=== PATIENT | female | born 1975 | race Caucasian/White ===

== ENCOUNTER 2017-08-03 13:52 | Inpatient (IN) | payer SELFPAY ==
[~2017-08-03 13:52] MED LIST: ISOVUE-370 76%-LOCM 1 ML ONE
[2017-08-03 16:18] LABS: Bilirubin Negative (Negative); Blood, Urine Negative (Negative); Clarity CLOUDY (Clear); Glucose, Urine (Dipstick) Negative (Negative); Leukocyte Trace (Negative); Nitrite Negative (Negative); Protein, Urine (Dipstick) Negative (Neg-Trace); Specific Gravity, Urine 1.019 (1.002-1.036); pH, Urine 6.5 (5.0-9.0)
[2017-08-03 16:19] LABS: Bacteria/HPF 1+ HPF (None Seen); Hyaline Casts/LPF 0-3 HYALINE CAST LPF (0-3 Hyaline); Pathc Cast-AUWi Flag 0.54 (0-2.49); Pregnancy Test - Urine (BHCG) Negative (Negative); Pregu Control Background? CLEAR/WHITE (CLR/WHITE); Pregu Control Bar Appear? YES (CONTROL BAR); RBC/HPF 0-3 HPF (0-3); Specific Gravity 1.019 (1.002-1.036); WBC/HPF 0-3 HPF (0-3)
[2017-08-03] MEDS ORDERED: Ondansetron HCl/PF 4 MG/2 ML Vial ONE (17:46)
[2017-08-03] MEDS ORDERED: Morphine 4 MG/ML VIAL ONE ×2 (17:46→20:30)
[2017-08-03 17:57] LABS: #Basophils 0.1 thou/uL (0.0-0.2); #Eosinphils 0.5 thou/uL (0.0-0.7); #Lymphocytes 1.7 thou/uL (1.20-3.40); #Neutrophils 3.7 thou/uL (1.40-6.50); %Basophils 0.9 % (0.0-1.0); %Eosinophils 7.4 % (0.0-10.0); %Lymphocytes 24.3 % (21.0-51.0); %Monocytes 14.2 % (0.0-10.0); %Neutrophils 53.2 % (42.0-75.0); Hemoglobin 14.4 g/dL (12.0-16.0); Mean Corpuscular HGB CONC 33.1 g/dL (32.0-36.0); Mean Corpuscular Hemoglobin 32.2 pg (27.0-31.0); Mean Corpuscular Volume 97.1 fl (81.0-99.0); Mean Platelet Volume 8.3 fL (7.4-10.4); Platelet Count 235 thou/uL (130-400); RBC Distribution Width 10.9 % (11.5-14.5); Red Blood Cell (RBC) Count 4.47 mill/uL (4.20-5.40); White Blood Cell (WBC) Count 6.9 thou/uL (4.8-10.8)
[2017-08-03 18:13] LABS: ALT (SGPT) 40 U/L (8-55); AST (SGOT) 31 U/L (5-34); Albumin 3.8 g/dL (3.5-5.0); Alkaline Phosphatase 48 U/L (40-150); Anion Gap 15 mmol/L (10-20); BUN (Urea Nitrogen) 13 mg/dL (7.0-18.7); Bilirubin, Total 0.4 mg/dL (0.2-1.2); Calc. Creatinine Clearance 0 mL/min (70-130); Calcium 9.5 mg/dL (7.8-10.44); Carbon Dioxide 23 mmol/L (22-29); Chloride 104 mmol/L (98-107); Estimated GFR-MDRD Greater than 90; Glucose 103 mg/dL (70-105); Potassium 3.9 mmol/L (3.5-5.1); Protein, Total 6.8 g/dL (6.0-8.3); Sodium 138 mmol/L (136-145)
--- NOTE | 2017-08-03 19:33 | ULT ---
PELVIC ULTRASOUND WITH DOPPLER IMAGING AND SPECTRAL ANALYSIS 08/03/17 CLINICAL HISTORY: Pelvic pain. FINDINGS: The endometrium is prominent at 11 mm. A dominant cyst is seen at the right adnexa. This measures sandra roximately 1.4 cm. Minimal free pelvic fluid is nonspecific. As demonstrated, uterus measures approxi mately 8.7 cm in length. Doppler assessment reveals flow to each ovary. IMPRESSION: 1. Prominent endometrium at 11 mm. If the patient is premenopausal, this could be physiologic. O therwise, recommend gynecologic consultation for further assessment. Six week pelvic ultrasound may a lso be performed to confirm resolution. 2. Dominant cyst of right adnexa between 1 and 2 cm in size. POS: [facility]
--- NOTE | 2017-08-03 20:18 | CT ---
CT ABDOMEN AND PELVIS WITH IV CONTRAST: 08/03/17 HISTORY: Lower abdominal pain and distention. FINDINGS: The lung bases are clear. The liver, spleen, pancreas, adrenal glands and kidneys are normal. No calc ified gallstones are seen. The proximal small bowel loops are dilated with suggestion of a transition zone in the left lower quadrant (image 56, series 2). No free air or free fluid or lymphadenopathy seen in the abdomen. The uterus and ovaries are present. There is a corpus luteal cyst in the left ovary. There are mild degenerative changes in the spine. A normal appearing appendix is present. IMPRESSION: Findings are suspicious for small bowel obstruction. POS: [facility]
[2017-08-03] MEDS ORDERED: Lidocaine 2% Jelly 5 ML TUBE ONE (21:23)
[2017-08-03] MEDS ORDERED: Benzocaine 20% Spray 60 ML CAN ONE (21:23)
[2017-08-03] MEDS ORDERED: Oxymetazoline HCl 0.05% ( 15 ML ) ONE (21:23)
[2017-08-03] MEDS ORDERED: HYDROmorphone 0.5 MG/0.5 ML SYRINGE ONE (21:40)
--- NOTE | 2017-08-03 22:29 | RAD ---
PORTABLE CHEST ONE VIEW 08/03/17 at 10:19 p.m. HISTORY: NG tube placement. FINDINGS/IMPRESSION: The heart size is normal. The lungs are clear. A nasogastric tube is present which can be traced in t he right upper quadrant in the projection of the stomach with tip excluded from the film. POS: [facility]
[2017-08-04 00:13] VITALS: BMI 25.6
[2017-08-04] MEDS ORDERED: Ondansetron ODT 4 MG TAB SL PRN (00:14)
[2017-08-04] MEDS ORDERED: Ondansetron HCl/PF 4 MG/2 ML Vial IVP PRN ×2 (00:14→09:16)
[2017-08-04] MEDS ORDERED: Acetaminophen 325 MG TAB PO PRN (00:14)
[2017-08-04] MEDS: Lactated Ringer's 1,000 ML IV SCH ×4 (01:13→18:59)
[2017-08-04] MEDS: Morphine 4 MG/ML VIAL SLOW IVP PRN ×3 (01:21→09:04)
[2017-08-04 07:57] LABS: #Basophils 0.1 thou/uL (0.0-0.2); #Eosinphils 0.4 thou/uL (0.0-0.7); #Lymphocytes 1.3 thou/uL (1.20-3.40); #Monocytes 0.9 thou/uL (0.11-0.59); #Neutrophils 4.2 thou/uL (1.40-6.50); %Eosinophils 6.5 % (0.0-10.0); %Lymphocytes 19.1 % (21.0-51.0); %Monocytes 13.3 % (0.0-10.0); %Neutrophils 60.2 % (42.0-75.0); Hemoglobin 13.6 g/dL (12.0-16.0); Mean Corpuscular HGB CONC 34.5 g/dL (32.0-36.0); Mean Corpuscular Hemoglobin 34.1 pg (27.0-31.0); Mean Corpuscular Volume 98.7 fl (81.0-99.0); Mean Platelet Volume 8.6 fL (7.4-10.4); Platelet Count 195 thou/uL (130-400); RBC Distribution Width 11.1 % (11.5-14.5); White Blood Cell (WBC) Count 6.9 thou/uL (4.8-10.8)
[2017-08-04 08:16] LABS: Anion Gap 10 mmol/L (10-20); BUN (Urea Nitrogen) 11 mg/dL (7.0-18.7); Calc. Creatinine Clearance 94 mL/min (70-130); Calcium 9.1 mg/dL (7.8-10.44); Carbon Dioxide 28 mmol/L (22-29); Chloride 105 mmol/L (98-107); Estimated GFR-MDRD 75; Glucose 101 mg/dL (70-105); Potassium 4.3 mmol/L (3.5-5.1); Sodium 139 mmol/L (136-145)
[2017-08-04] MEDS ORDERED: Ondansetron ODT 8 MG TAB SL PRN (09:16)
[2017-08-04] MEDS ORDERED: Ketorolac Tromethamine 30 MG/ML VIAL IVP PRN (09:17)
[2017-08-04] MEDS ORDERED: Magnesium Citrate 300 ML BOT PO SCH ×2 (11:00→14:15)
--- NOTE | 2017-08-04 11:07 | RAD ---
ACUTE ABDOMINAL SERIES WITH FRONTAL RADIOGRAPH CHEST AND TWO VIEWS ABDOMEN: 08/04/2017 HISTORY: Re-evaluate small bowel obstruction. COMPARISON: CT abdomen and pelvis from 08/03/2017. FINDINGS: Frontal radiograph chest demonstrates no pneumothorax or pleural fluid and no focal consolidation or alveolar edema. There is a nasogastric tube overlying the midline superior mediastinum and tracheal air column. It t erminates at the level of the shirley. The exact location is uncertain. This could be within the eso phagus or the trachea. It should be advanced and reimaged. No focal consolidation or alveolar edema. Two views of the abdomen demonstrate no free intraperitoneal air. There is residual contrast media w ithin the urinary bladder. There is gas within the nondilated large and small bowel. Of note, there were prominent small bowel loops on prior CT, which were fluid-filled, and thus may be difficult to visualize on this exam. IMPRESSION: Nasogastric tube overlies the superior mediastinum and should be advanced and reimaged. No free intr aperitoneal air or significant gaseous distention of small bowel. Please see above discussion. POS: [facility]
[2017-08-04] MEDS: Acetaminophen 1,000 MG in Premix Bag 1 BAG IVPB SCH ×3 (11:10→23:45)
--- NOTE | 2017-08-04 11:17 | RAD ---
ABDOMEN ONE VIEW: HISTORY: Nasogastric tube placement. FINDINGS: Nasogastric tube descends to the stomach with the proximal port overlying the fundus. The visualized bowel gas pattern is nonspecific. Metallic bar overlies the umbilicus. IMPRESSION: Nasogastric tube is in good radiographic position. POS: [facility]
[2017-08-04] MEDS ORDERED: Morphine 4 MG/ML VIAL SLOW IVP PRN ×2 (14:05→14:06)
[2017-08-04] MEDS ORDERED: Fleet Enema 133 ML BOT PR SCH (14:15)
[2017-08-04] MEDS ORDERED: Chloraseptic Spray 180 ml Bottle PO PRN (17:17)
--- NOTE | 2017-08-04 19:44 | HP ---
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 She thought this was an ovarian cyst. She saw her optic fibre drawer several ye ars ago who recommended she have a hysterectomy for pressure incontinence and left ovarian cyst. The optic fibre drawer since left town and she has not seen another optic fibre drawer since. The patient presented to the emergency room yesterday, not having had a bowel movement since Wednesday (today is Wed). It was so busy that she left, but her pain was so severe that she returned. In the emergenc y room, she was evaluated and noted to have a white blood cell count of 6, hemoglobin 14. Comprehens cheo metabolic profile unremarkable. She underwent pelvis ultrasound that showed a small 1-2 cm cyst in right ovary and thickened endometrium, otherwise no remarkable findings. CAT scan of abdomen and pelvis obtained yesterday evening 7:00 p.m. revealing proximal small bowel loops dilated with suggest ion of transition zone on the left lower quadrant. The patient was admitted. NG tube placed. I had requested an NG tube be placed at 65 cm. Apparently, by the time I reviewed her abdominal x-rays morning, the NG tube is at 36 cm and in the distal esophagus. This has since been advanced and re peat abdominal x-rays reveal that it was placed in proper position. CAT scan revealed significant co nstipation. This was not read out by the Radiology. She has significant stool in her right colon, t ransverse colon, and sigmoid colon. She is having pain in her lower abdomen. She reports normal bow el movements previously. The patient has common law marriage, although . She has 2 grown jake evans. Her mother is with her. ALLERGIES: AZITHROMYCIN, PENICILLIN. TOBACCO: None. ALCOHOL: Socially. She had 4 beers two days and nights ago. HOME MEDICATIONS: Levothyroxine. PAST MEDICAL HISTORY: Hypothyroidism, stress urinary incontinence, chronic. PAST SURGICAL HISTORY: Laparoscopy at 14 years of age for an anteverted uterus, otherwise noncontrib utory. PHYSICAL EXAMINATION: VITAL SIGNS: 5 feet 4, 129 pounds, 25 BMI, temperature 97.6, pulse 71, blood pressure 106/66. HEAD, EYES, EARS, NOSE AND THROAT: Unremarkable. LUNGS: Clear to auscultation. CARDIAC: Regular rate and rhythm without murmur or gallop. ABDOMEN: Soft. Mild protuberance in her lower abdomen. It is not tympanitic. She has mild guardin g, but no peritoneal signs. Upper abdomen is soft. EXTREMITIES: Unremarkable. ASSESSMENT AND PLAN: Abdominal pain. Radiological findings suggest a bowel obstruction with a possi ble transition zone, but was not mentioned on her CAT scan is that she has significant constipation. I have given her magnesium citrate per NG tube this morning without results. She is passing some fl atus. I am repeating the magnesium citrate through her NG tube and giving her an enema. We will rep eat abdominal x-rays in the morning and obtain a small bowel follow through in the morning. We will make further recommendations pending these studies. I have encouraged to be ambulatory. I have enco uraged her to avoid narcotics and try to treat her discomfort with nonnarcotic analgesics.
[2017-08-04] MEDS ORDERED: Enoxaparin Sodium 40 MG/0.4 ML SYRINGE SC SCH (21:00)
[2017-08-04] MEDS ORDERED: Morphine 4 MG/ML Carpuject SLOW IVP PRN (21:28)
[2017-08-04] MEDS: Morphine 4 MG/ML Carpuject SLOW IVP PRN (21:43)
[2017-08-05] MEDS: Morphine 4 MG/ML Carpuject SLOW IVP PRN (03:48)
[2017-08-05] MEDS: Lactated Ringer's 1,000 ML IV SCH ×2 (03:57→10:52)
[2017-08-05] MEDS: Acetaminophen 1,000 MG in Premix Bag 1 BAG IVPB SCH ×2 (05:30→14:59)
--- NOTE | 2017-08-05 07:35 | RAD ---
TWO VIEWS ABDOMEN: HISTORY: Lower abdominal pain. FINDINGS: Supine and upright views of the abdomen are obtained. Radiopaque contrast is seen in the bladder and urinary collecting systems. There is a moderate degree of stool in the colon. No evidence of obstruction or ileus seen. No dila jacqueline loops of bowel seen. No evidence of free intraperitoneal air is seen. IMPRESSION: Unremarkable 2 views abdomen. POS: [facility]
[2017-08-05] MEDS ORDERED: Pantoprazole 40 MG VIAL IVP SCH (09:00)
--- NOTE | 2017-08-05 10:28 | RAD ---
ACUTE ABDOMINAL SERIES: Date: 08-05-17 Comparison: 08-04-17 History: Re-evaluate small bowel obstruction. FINDINGS: There is a nasogastric tube present. On the upright radiograph of the abdomen the nasogastric tube ex tends into the left upper quadrant with the sideport in the expected location of the gastric body and /or fundus. No free intraperitoneal air is noted. There is no dilated gas filled small bowel seen. Th ere is no pneumothorax, pleural fluid, or focal consolidation. IMPRESSION: No evidence for small bowel obstruction or free intraperitoneal air. No radiographic evidence of acut e cardiopulmonary disease. POS: [facility]
[2017-08-05] MEDS ORDERED: MD-Gastroview 120 ML BOT ONE (12:13)
--- NOTE | 2017-08-05 13:29 | RAD ---
GASTROGRAFIN SMALL BOWEL THROUGH: Date: 08-05-17 Provided Clinical History: Small bowel obstruction. FINDINGS: Installer Technician radiograph was performed as part of an acute abdominal series preceding the exam. Contrast admi nistered through the patient's enteric catheter. There is oral contrast material noted to traverse th e small bowel and inter the colon at the 45 minute elvis. The small bowel demonstrates a normal imagin g appearance. IMPRESSION: No evidence for small bowel obstruction. POS: [facility]
--- NOTE | 2017-08-05 14:44 | PRG ---
DATE OF SERVICE: 08/05/2017 Ms. Flaherty is doing well today. Mag citrate 2 doses given per NG tube last night, and she had karely l movements last night. This morning, small bowel follow through was normal. Abdominal x-rays nonsp ecific. She is tolerating her diet and having bowel movements and will plan discharge home today. A bdomen is soft, nontender, and nondistended.
[2017-08-05 15:49] VITALS: BP 109/65; TEMP 98
--- NOTE | 2017-08-06 00:03 | DIS ---
DATE OF ADMISSION: 08/03/2017 DATE OF DISCHARGE: 08/05/2017 DISCHARGE DIAGNOSES: 1. Partial bowel obstruction. 2. Constipation, severe. 3. Abdominal pain. HISTORY: A 41-year-old female patient presented in the emergency room with a history of abdominal di stention, nausea, and vomiting. She underwent abdominal and pelvic CAT scan and pelvic ultrasound. She had a 2 cm ovarian cyst, left. She has another bowel obstruction, but what was not read out on C AT scan was severe constipation. NG tube was placed and she did put a significant output overnight. By the time I saw her that morning, magnesium citrate was given 2 doses per NG tube and a small karely l follow through carried out the next day after the magnesium citrate. She had 3 to 4 bowel movement s, small bowel follow through was normal. NG tube removed. She was discharged home at this time, ad vised to take MiraLax and fiber daily and she will return to see me as needed. Diet and activity as tolerated.
== END 2017-08-05 16:31 | disposition home or self-care (01) | DRG 390 ==
LOC: ERS 13:52 → SURG B 20:40
PROVIDERS: ADMIT Specialist; ATTEND Specialist
DX: K56.609 Unspecified intestinal obstruction, unspecified as to partial versus complete obstruction (principal); E03.9 Hypothyroidism, unspecified; K59.00 Constipation, unspecified; N83.202 Unspecified ovarian cyst, left side; R32 Unspecified urinary incontinence
CPT/HCPCS: 36415; 71045; 74018; 74019; 74022; 74177; 74250; 76856; 80048; 80053; 81003; 81015; 81025; 83605; 85025; 96361; 96374; 96375; 96376; C9113; J0131; J1170; J1650; J1885; J2270; J2405

== ENCOUNTER 2018-06-29 09:21 | Emergency (ER) | payer SELFPAY ==
[2018-06-29] MEDS ORDERED: Dexamethasone 10 MG/ML VIAL ONE (10:12)
[2018-06-29] MEDS ORDERED: Clindamycin/D5W 900 mg/50 ml Premix Bag ONE (10:12)
[2018-06-29] MEDS ORDERED: Morphine 4 MG/ML VIAL ONE (10:12)
[2018-06-29] MEDS ORDERED: Ondansetron PF 4 MG/2 ML Vial ONE (10:12)
[2018-06-29] MEDS ORDERED: ISOVUE-370 76%-LOCM 1 ML ONE (10:40)
[2018-06-29] MEDS ORDERED: Ketorolac Tromethamine 30 MG/ML VIAL ONE (11:05)
--- NOTE | 2018-06-29 12:08 | CT ---
CT NECK SOFT TISSUES WITH CONTRAST: DATE: 06-29-18 HISTORY: 42-year-old female with pharyngitis and dysphagia. FINDINGS: There is moderately severe soft tissue edema involving multiple spaces, displacing structures, involv ing left submandibular, left sublingual, larynx (mostly left side), and left hypopharnyx (complete ef facement of left pyriform sinus). There is also some involvement of the visceral space bilaterally, m ild involvement of left parapharyngeal space, and left pharmacy resource tech space. The left submandibular gland has normal, symmetric degree of enhancement as the right. It is displaced to the left by the edema. There is no retropharyngeal abscess. No osseous cortical defect is identified in the mandible around roots of teeth on the lingual side. On the contralateral right side, there is a moderate sized osseous lucency completely surrounding the roots of one of the right molar teeth, with moderate sized lateral osseous defects at the buccal michelle e. Bilateral palatine tonsils, adenoids and lingual tonsils are mildly to moderately enlarged. There are multiple mildly enlarged reactive lymph nodes in the left side of the neck. Trachea is patent and cl ear. No consolidation at lung apices. IMPRESSION: 1. Evidence for cellulitis, with extensive moderately severe edema involving multiple spaces of the n damion, mostly on the left side. 2. No obvious dental source of the infection is identified in the left mandible. 3. There is moderately large periapical lucency around the root of one of the contralateral right mol ar teeth, associated with buccal side large osseous defect. 4. The above findings of edema have the appearance of Vinayak's angina, but without an obvious left si ded dental source. POS: [facility]
[2018-06-29 12:09] LABS: #Eosinphils 0.2 thou/uL (0.0-0.7); #Lymphocytes 0.6 thou/uL (1.20-3.40); #Monocytes 0.9 thou/uL (0.11-0.59); #Neutrophils 9.2 thou/uL (1.40-6.50); %Basophils 0.1 % (0.0-1.0); %Eosinophils 2.2 % (0.0-10.0); %Lymphocytes 5.5 % (21.0-51.0); %Monocytes 8.6 % (0.0-10.0); %Neutrophils 83.7 % (42.0-75.0); Hemoglobin 13.9 g/dL (12.0-16.0); Mean Corpuscular HGB CONC 33.4 g/dL (32.0-36.0); Mean Corpuscular Volume 95.7 fL (78.0-98.0); Mean Platelet Volume 8.8 fL (7.4-10.4); Platelet Count 209 thou/uL (130-400); RBC Distribution Width 11.4 % (11.5-14.5); Red Blood Cell (RBC) Count 4.33 mill/uL (4.20-5.40)
[2018-06-29 12:26] LABS: BHCG - Serum Negative (NEGATIVE); Pregs Control Background? CLEAR/WHITE (CLR/WHITE); Pregs Control Bar Appear? YES (CONTROL BAR)
[2018-06-29 12:35] LABS: ALT (SGPT) 23 U/L (8-55); AST (SGOT) 17 U/L (5-34); Albumin 3.5 g/dL (3.5-5.0); Alkaline Phosphatase 47 U/L (40-150); Anion Gap 9 mmol/L (10-20); BUN (Urea Nitrogen) 4 mg/dL (7.0-18.7); Bilirubin, Total 0.5 mg/dL (0.2-1.2); Calc. Creatinine Clearance 0 mL/min (70-130); Calcium 8.7 mg/dL (7.8-10.44); Carbon Dioxide 25 mmol/L (22-29); Chloride 102 mmol/L (98-107); Estimated GFR-MDRD Greater than 90; Globulin 3.1 g/dL (2.4-3.5); Glucose 106 mg/dL (70-105); Protein, Total 6.6 g/dL (6.0-8.3); Sodium 132 mmol/L (136-145)
== END 2018-06-29 13:11 | disposition home or self-care (01) ==
LOC: ERS 09:21
DX: L03.221 Cellulitis of neck (principal); E03.9 Hypothyroidism, unspecified; J45.909 Unspecified asthma, uncomplicated; Z79.899 Other long term (current) drug therapy
CPT/HCPCS: 36415; 70491; 80053; 84703; 85025; 87081; 87430; 96365; 96366; 96375; J1100; J1885; J2270; J2405; J3490